=== PATIENT | female | born 1995 | race American Indian/Alaskan Native ===

== ENCOUNTER 2023-08-16 18:20 | Emergency (ER) | payer MEDICAID ==
[~2023-08-16] VITALS: Ht 160 cm; Wt 54.0 kg
[2023-08-16 18:28] VITALS: BP 111/70; PULSE 100; RESP 16; TEMP 98.7; O2SAT 100
== END 2023-08-16 22:38 | disposition home or self-care (01) ==
LOC: ER 18:20
DX: T19.2XXA Foreign body in vulva and vagina, initial encounter (principal); X58.XXXA Exposure to other specified factors, initial encounter; Y93.89 Activity, other specified; Y92.89 Other specified places as the place of occurrence of the external cause; Y99.8 Other external cause status
CPT/HCPCS: 99284; Z7610; 99281